=== PATIENT | female | born 1940 | race Caucasian/White ===

== ENCOUNTER 2018-04-11 22:21 | Emergency (ER) | payer MEDICARE, BC ==
--- NOTE | 2018-04-11 23:06 | EDM.PDOC ---
ED HPI GENERAL MEDICAL PROBLEM - General Chief Complaint: Eye Problems Stated Complaint: bloody eye Time Seen by Provider: 04/11/18 22:49 Source of Information: Reports: Patient History Limitations: Reports: No Limitations - History of Present Illness INITIAL COMMENTS - FREE TEXT/NARRATIVE: Patient presents to ER with complaints of discomfort to eye. States was relaxing in the recliner, had fell asleep while watching TV. Awoke and noted discomfort to eye. Had not taken her blood pressure medication yet and checked her BP at home and was high. Noted a significant amount of blood that had pooled in her eye. Relates that she has experienced this before but never this severe. Does not note any vision changes. No recent trauma. Had not coughed or sneezed that she is aware. Does take a baby ASA every day. Onset: Today, Sudden Duration: Minutes: Location: Reports: Head Quality: Reports: Ache, Dull Severity: Moderate Improves with: Reports: None Associated Symptoms: Denies: Confusion, Chest Pain, Cough, Fever/Chills, Loss of Appetite, Nausea/Vomiting, Shortness of Breath, Weakness Left Eye Pain Score (Numeric/FACES): 6 - Related Data Allergies Allergy/AdvReac Type Severity Reaction Status Date / Time No Known Allergies Allergy Verified 04/11/18 22:31 Home Meds: Home Meds Aspirin 81 mg PO DAILY 04/11/18 [History] Cholecalciferol (Vitamin D3) [Vitamin D3] 400 units PO DAILY 04/11/18 [History] Diltiazem [Cardizem CD] 120 mg PO DAILY 04/11/18 [History] Hydrochlorothiazide [Microzide] 12.5 mg PO DAILY 04/11/18 [History] Losartan [Cozaar] 50 mg PO BID 04/11/18 [History] Metoprolol Tartrate 50 mg PO BID 04/11/18 [History] Rosuvastatin [Crestor] 10 mg PO DAILY 04/11/18 [History] Ubidecarenone [Co Q-10] 100 mg PO DAILY 04/11/18 [History] Past Medical History Cardiovascular History: Reports: High Cholesterol, Hypertension Musculoskeletal History: Reports: Arthritis Psychiatric History: Reports: None Oncologic (Cancer) History: Reports: Malignant Melanoma Dermatologic History: Reports: Melanoma - Past Surgical History Oncologic Surgical History: Reports: Other (See Below) Dermatological Surgical History: Reports: Skin Biopsy Social & Family History - Tobacco Use Smoking Status *Q: Unknown Ever Smoked ED ROS GENERAL - Review of Systems Review Of Systems: See Below Constitutional: Denies: Fever, Chills, Malaise, Weakness HEENT: Reports: Eye Pain. Denies: Ear Discharge, Ear Pain, Rhinitis, Sinus Problem, Vision Change Respiratory: Denies: Shortness of Breath, Cough Cardiovascular: Reports: Blood Pressure Problem. Denies: Chest Pain, Edema, Lightheadedness Endocrine: Denies: Fatigue GI/Abdominal: Denies: Abdominal Pain, Nausea, Vomiting Skin: Reports: No Symptoms Neurological: Reports: No Symptoms ED EXAM GENERAL W FULL EYE - Physical Exam Exam: See Below Exam Limited By: No Limitations General Appearance: Alert, WD/WN, No Apparent Distress Eye Exam: Left Eye: Bleeding (Has significant subconjunctival hemorrhage to her left eye), Bilateral Eye: EOMI, PERRL Eyelids: Bilateral: Normal Appearance Conjunctiva & Sclera: Left: Subconjuctival Hemorrhage Extraocular Movements: Bilateral: Intact Pupils: Normal Accommodation Pupillary Size: Bilateral: 3 mm Pupillary Reaction: Bilateral: Brisk Posterior Chamber: Left: Normal Funduscopic Ears: Normal External Exam, Normal TMs Nose: Normal Inspection, Normal Mucosa, No Blood Throat/Mouth: Normal Inspection, Normal Oropharynx Head: Normocephalic Neck: Normal Inspection, Supple, Non-Tender Respiratory/Chest: No Respiratory Distress, Lungs Clear, Normal Breath Sounds Cardiovascular: Regular Rate, Rhythm Neurological: Alert, Oriented Skin Exam: Warm, Dry Course - Vital Signs Last Recorded V/S: Last Vital Signs Temp 97.6 F 04/11/18 22:37 Pulse 72 04/11/18 22:54 Resp 20 04/11/18 22:37 BP 179/80 H 04/11/18 22:54 Pulse Ox 97 04/11/18 22:37 Departure - Departure Time of Disposition: 23:02 Disposition: Home, Self-Care 01 Condition: Good Clinical Impression: Subconjunctival hematoma - Discharge Information *PRESCRIPTION DRUG MONITORING PROGRAM REVIEWED*: No *COPY OF PRESCRIPTION DRUG MONITORING REPORT IN PATIENT MICHELLE: No Instructions: Subconjunctival Hemorrhage Referrals: Dave Lu MD [Primary Care Provider] - Forms: ED Department Discharge Additional Instructions: 1. Rest 2. Ice Pack to area 3. Tylenol for discomfort 4. Hold aspirin tomorrow 5. Contact Dr. Velazquez's office for more thorough eye exam 6. Call with any questions
== END 2018-04-11 23:14 | disposition home or self-care (01) ==
LOC: CC.ED 22:21
DX: H11.32 Conjunctival hemorrhage, left eye (principal); E78.00 Pure hypercholesterolemia, unspecified; I10 Essential (primary) hypertension; Z79.899 Other long term (current) drug therapy
CPT/HCPCS: 99282

== ENCOUNTER 2024-10-31 10:15 | Day surgery (SDC) | payer MEDICARE, BC ==
[2024-10-31] MEDS: Lactated Ringers 1,000 ML IV SCH (10:38)
[2024-10-31] MEDS ORDERED: fentaNYL 50 MCG/ML SDV ONE (10:51)
[2024-10-31] MEDS ORDERED: Propofol 200 MG/20 ML SDV ONE (10:51)
[2024-10-31] MEDS ORDERED: Ketamine 200 MG/20 ML MDV ONE (10:51)
== END 2024-10-31 12:25 | disposition home or self-care (01) ==
LOC: CC.SDS 10:15
PROVIDERS: ATTEND Family Medicine
DX: Z12.11 Encounter for screening for malignant neoplasm of colon (principal); R19.5 Other fecal abnormalities; K63.5 Polyp of colon; K57.30 Diverticulosis of large intestine without perforation or abscess without bleeding
CPT/HCPCS: 00811; 88305; 99100; J2704; J3010; J3490; J7120